=== PATIENT | male | born 1945 | race Caucasian/White ===

== ENCOUNTER 2025-03-09 18:56 | Emergency (ER) | payer OTHER, BC ==
--- NOTE | 2025-03-09 20:15 | RAD REPORT ---
EXAMINATION: Elbow Right 3 View CLINICAL INDICATION: Male, 79 years old. fall;Pain RIGHT COMPARISON: No prior exam. FINDINGS: No acute fracture. No malalignment/dislocation. No significant focal degenerative change. Other: Swelling along the dorsal aspect of the elbow with some subcutaneous gas. IMPRESSION: No acute fracture. Soft tissue swelling along the dorsal aspect of the elbow overlying the olecranon with some soft tissue gas. The soft tissue gas could be from a laceration or infection.
[2025-03-09] MEDS ORDERED: VANCOMYCIN 1 GM/VIAL ONE (22:19)
[2025-03-09] MEDS ORDERED: NA CHLORIDE 0.9% 500 ML ONE (22:19)
[2025-03-09] MEDS ORDERED: NA CHLORIDE 0.9% 250 ML ONE (22:19)
[2025-03-09] MEDS ORDERED: NA CHLORIDE 0.9% 100 ML ONE (22:20)
[2025-03-09] MEDS ORDERED: CEFEPIME 1 GM/VIAL ONE (22:20)
[2025-03-09 22:27] LABS: Absolute Basophils 0.1 K/uL (0-0.5); Absolute Eosinophils 0.1 K/uL (0-0.5); Absolute Lymphocytes (CBC) 0.8 K/uL (0.7-4.9); Absolute Monocytes 0.6 K/uL (0.1-1.3); Absolute Neutrophil 9.8 K/uL (1.8-8.0); Basophils % 0.6 % (0-1.3); Eosinophils % 0.7 % (0-4.4); Hematocrit 35.7 % (39.6-49.0); Hemoglobin 12.3 g/dL (13.6-17.9); Lymphocytes % 7.4 % (15.3-44.8); MCH 35.4 pg (27.0-35.0); MCHC 34.5 g/dL (32.0-36.0); MCV 102.5 fL (80-100); MPV 6.5 fL (7.6-11.3); Monocytes % 4.9 % (3.3-12.3); Neutrophils % 86.4 % (41.7-73.7); Platelets 362 thou/uL (152-406); RBC Red Blood Cell Count 3.48 M/uL (4.33-5.43)
[2025-03-09 22:32] LABS: PT Prothrombin Time 11.8 SECONDS (10-13.0); PTT, Activated Partial Thromb 32.1 SECONDS (27.2-37.4); Protime INR 1.04
[2025-03-09 22:37] LABS: AST/SGOT 17 U/L (15-37); Albumin 3.3 g/dL (3.4-5.0); Albumin/Globulin Ratio 0.7 (1.1-1.8); Alkaline Phosphatase 100 U/L (45-117); Anion Gap 8.5 mEq/L (5.0-15.0); BUN Blood Urea Nitrogen 22 mg/dL (7-18); Bicarbonate 29 mEq/L (21-32); Bilirubin Total 0.3 mg/dL (0.2-1.0); Globulin 4.6 g/dL (2.3-3.5); Glomerular Filtration Rate 64 ml/min (=/>90); Glucose Level 95 mg/dL (74-106); Potassium 4.5 mEq/L (3.5-5.1); Protein, Total 7.9 g/dL (6.4-8.2); Sodium Level 131 mEq/L (136-145)
[2025-03-09 23:07] LABS: ALT/SGPT < 14 U/L (16-61)
--- NOTE | 2025-03-09 23:41 | EDPHYS ---
Physician Documentation [facility] Name: Per Doherty Age: 79 yrs Sex: Male : 1945 Arrival Date: 03/09/2025 Time: 18:56 Bed 19 Private MD: ED Physician Chavo Stephen HPI: 03/09 20:00 This 79 yrs old Male presents to ER via Ambulatory with complaints of Fall Injury - cp ELBOW, ELBOW PROBLEM. 20:00 Details of fall: The patient fell from an upright position, while walking, and struck a cp tile surface. Onset: The symptoms/episode began/occurred 3 day(s) ago. Associated injuries: The patient sustained right elbow, painful injury, swelling. Historical: - PMHx: 19:47 Hypertensive disorder; br2 - Immunization history:: Adult Immunizations up to date, Last tetanus immunization: unknown. - Infectious Disease History:: Denies. - Social history:: Smoking status: Patient/guardian denies using tobacco, Patient uses alcohol, occasionally. Patient/guardian denies using street drugs. ROS: 20:05 MS/extremity: Positive for erythema, pain, swelling, tenderness, of the right elbow, cp Negative for decreased range of motion, deformity, 20:05 Constitutional: Negative for body aches, chills, fever, cp 20:05 Eyes: Negative for injury, pain, redness, and discharge, cp 20:05 Neck: Negative for pain with movement, pain at rest, cp 20:05 Cardiovascular: Negative for chest pain, 20:05 Respiratory: Negative for cough, shortness of breath, wheezing, 20:05 Abdomen/GI: Negative for abdominal pain, vomiting, diarrhea, constipation, 20:05 Back: Negative for pain at rest, pain with movement, 20:05 Neuro: Negative for altered mental status, dizziness, headache, loss of consciousness, syncope, 20:05 All other systems are negative, Exam: 20:10 Constitutional: The patient appears in no acute distress, alert, awake, cp non-diaphoretic, non-toxic, well developed, well nourished, 20:10 Head/Face: Normocephalic, atraumatic. cp 20:10 Eyes: Periorbital structures: appear normal, Conjunctiva: normal, no exudate, no cp injection, Sclera: no appreciated abnormality, Lids and lashes: appear normal, bilaterally, 20:10 ENT: External ear(s): are unremarkable, Nose: is normal, Mouth: Lips: moist, Oral cp mucosa: moist, Posterior pharynx: Airway: no evidence of obstruction, patent, 20:10 Chest/axilla: Inspection: normal, 20:10 Cardiovascular: Rate: normal, Rhythm: regular, 20:10 Respiratory: the patient does not display signs of respiratory distress, Respirations: normal, no use of accessory muscles, no retractions, labored breathing, is not present, Breath sounds: are clear throughout, no decreased breath sounds, no stridor, no wheezing, 20:10 Abdomen/GI: Inspection: abdomen appears normal, Palpation: abdomen is soft and non-tender, in all quadrants, 20:10 Back: pain, is absent, ROM is normal, 20:10 Neuro: Orientation: to person, place \T\ time. Mentation: is normal, Motor: moves all fours, strength is normal, 20:13 Musculoskeletal/extremity: Extremities: noted in the right elbow: small open wound cp posterior elbow with colored drainage expressed, moderate swelling with erythema advancing medial and proximal to joint and distal to joint, Vital Signs: 19:42 BP 145 / 87; Pulse 99; Resp 18; Temp 97.2; Pulse Ox 99% ; Weight 69.85 kg; Height 5 ft. br2 11 in. ; Pain 3/10; 03/10 00:43 BP 137 / 73; Pulse 84; Resp 18; Temp 97.2(TE); Pulse Ox 98% on R/A; Pain 2/10; br2 01:26 BP 140 / 68; Pulse 62; Resp 18; Pulse Ox 100% ; br2 04:11 BP 115 / 55; Pulse 74; Resp 18; Pulse Ox 97% on R/A; km10 05:30 BP 111 / 55; Pulse 66; Resp 16; Pulse Ox 97% on R/A; km10 03/09 19:42 Body Mass Index 21.48 (69.85 kg, 180.34 cm) br2 03/09 19:42 Pain Scale: Adult br2 03/10 00:43 Pain Scale: Adult br2 MDM: 03/09 20:00 Differential diagnosis: contusion, fracture, cellulitis, septic joint, bursitis, cp necrotizing fasciitis. 21:00 Independent interpretation of the following test(s) in the Emergency Department EKG: cp See my EKG interpretation above X-Ray: My interpretation is images of right elbow negative for fracture. 23:40 Medical Screening Exam initiated 23:45 Data reviewed: vital signs, nurses notes, lab test result(s), radiologic studies, plain cp films. 23:45 Care significantly affected by the following chronic conditions: Hypertension. 23:45 Counseling: I had a detailed discussion with the patient and/or guardian regarding the cp historical points, exam findings, and any diagnostic results supporting the discharge/admit diagnosis, lab results, radiology results, need for inpatient treatment with IV antibiotics. 23:50 Management of patient was discussed with the following: Hospitalist: DR Malagon who cp request transfer for orthopedics consult. 03/10 00:11 ED course: consult with orthopedics at [facility], DR Rodriguez who requests cp admission to hospitalist services. 03/09 19:49 Order name: Wound Culture 03/09 19:54 Order name: CBC with Diff; Complete Time: 00:50 03/09 22:48 Interpretation: Normal except: WBC 11.30; RBC 3.48; HGB 12.3; HCT 35.7; MCV 102.5; MCH cp 35.4; MPV 6.5; KENDELL% 86.4; LYM% 7.4; NEUT A 9.8. 03/09 19:54 Order name: CMP; Complete Time: 00:10 03/09 19:54 Order name: Lactate w/ 2H reflex if indic.; Complete Time: 22:48 03/09 19:54 Order name: PT-INR; Complete Time: 22:48 cp 03/09 19:54 Order name: Ptt, Activated; Complete Time: 22:48 03/09 20:59 Order name: Blood Culture Adult (2) 03/09 22:49 Order name: Manual Differential; Complete Time: 00:50 EDMS 03/09 19:49 Order name: XRAY Elbow RIGHT 3 view; Complete Time: 20:58 cp 03/09 20:58 Interpretation: Report reviewed. 03/09 19:54 Order name: IV; Complete Time: 21:57 cp Administered Medications: 03/09 23:03 Drug: Cefepime IVPB 1 grams IVPB at 200 ml/hr once over 30 mins; (mix in NS 100 mL) br2 Route: IVPB; Rate: 200 ml/hr; Infused Over: 30 mins; Site: left antecubital; 23:45 Follow up: Response: No adverse reaction; IV Status: Completed infusion; IV Intake: br2 100ml 23:04 Drug: NS 0.9% IV 500 ml 500 ml IV at 1 bolus once; to be given as a bolus over 60 br2 minutes Volume: 500 ml; Route: IV; Rate: 1 bolus; Site: left antecubital; 03/10 00:36 Follow up: Response: No adverse reaction; IV Status: Completed infusion; IV Intake: br2 500ml 00:00 Drug: vancoMYCIN IVPB 1 grams IVPB once over 2 hrs Route: IVPB; Infused Over: 2 hrs; br2 Site: left antecubital; 03:16 Follow up: Response: No adverse reaction; IV Status: Completed infusion; IV Intake: br2 250ml 00:55 Drug: morphine IVP or IV 4 mg IVP once over 4 mins Route: IVP; Infused Over: 4 mins; br2 Site: left antecubital; 01:30 Follow up: Response: Pain is decreased br2 00:55 Drug: Ondansetron IVP 4 mg IVP once; over 2 minutes Route: IVP; Site: left antecubital; br2 01:30 Follow up: Response: No adverse reaction br2 Disposition: 19:16 Co-signature as Attending Physician, Chavo Stephen MD I agree with the assessment sp4 and plan of care. I reviewed the patient's care provided by the Advanced Practice Provider and agree with the diagnosis and treatment plan. 19:17 Chart complete. sp4 Disposition Summary: 03/09/25 23:40 Transfer Ordered Notes: Transfer Location: Other [facility] cp Reason: Higher level of care cp Condition: Stable cp Problem: new cp Symptoms: have improved cp Accepting Physician: doctor(03/10/25 05:40) km10 Diagnosis - Olecranon bursitis, right elbow cp - Cellulitis of right upper limb cp Forms: - Medication Reconciliation Form cp - SBAR form cp Signatures: Dispatcher [employer] EDMS Lewis Cabral PA PA cp Potepalov, Sergey, MD MD sp4 Rayne Henry RN RN br2 Shalonda Dee RN RN km10 Corrections: (The following items were deleted from the chart) 03/09 19:50 19:50 Wound Culture+[email or web address] ordered. EDMS EDMS 03/10 05:40 03/09 23:40 doctor yolette km10
--- NOTE | 2025-03-09 23:41 | ER ---
Nurse's Notes [facility] Name: Per Doherty Age: 79 yrs Sex: Male : 1945 Arrival Date: 03/09/2025 Time: 18:56 Bed 19 Private MD: Diagnosis: Olecranon bursitis, right elbow;Cellulitis of right upper limb Presentation: 03/09 19:42 Chief complaint: Patient states: S/P FALL 4 DAYS AGO, C/O RIGHT ELBOW PAIN...POSSIBLE br2 ABSCESS TO RIGHT ELBOW. Coronavirus screen: Client denies travel out of the [place] in the last 14 days. Ebola Screen: Patient denies exposure to infectious person. Initial Sepsis Screen: Does the patient meet any 2 criteria? No. Patient's initial sepsis screen is negative. Does the patient have a suspected source of infection? No. Patient's initial sepsis screen is negative. Risk Assessment: Do you want to hurt yourself or someone else? Patient reports no desire to harm self or others. Onset of symptoms was March 05, 2025. 19:42 Method Of Arrival: Ambulatory br2 19:42 Acuity: ANTHONY 3 br2 Triage Assessment: 19:42 EENT: No signs and/or symptoms were reported regarding the EENT system. Neuro: Johnson br2 Agitation-Sedation Scale (RASS): 0 - Alert and Calm Level of Consciousness is awake, alert, Oriented to person, place, time, situation. Cardiovascular: Denies chest pain, shortness of breath, Capillary refill < 3 seconds. Respiratory: Denies shortness of breath. Derm: Skin is thin, Skin is moist, Skin is red, Skin temperature is hot Wound noted right elbow. 19:47 General: Appears uncomfortable, Behavior is calm, cooperative. Pain: Complains of pain br2 in right arm Pain currently is 3 out of 10 on a pain scale. Historical: - PMHx: 19:47 Hypertensive disorder; br2 - Immunization history:: Adult Immunizations up to date, Last tetanus immunization: unknown. - Infectious Disease History:: Denies. - Social history:: Smoking status: Patient/guardian denies using tobacco, Patient uses alcohol, occasionally. Patient/guardian denies using street drugs. Screenin:42 [facility] ED Fall Risk Assessment (Adult) History of falling in the last 3 months, br2 including since admission Yes- single mechanical fall (1 pt) Confusion or Disorientation No (0 pts) Intoxicated or Sedated No (0 pts) Impaired Gait No (0 pts) Mobility Assist Device Used No (0 pt) Altered Elimination No (0 pt) Score/Fall Risk Level 0 - 2 = Low Risk Oriented to surroundings. Abuse screen: Denies threats or abuse. Denies injuries from another. Nutritional screening: No deficits noted. Tuberculosis screening: No symptoms or risk factors identified. Assessment: 03/10 01:30 Reassessment: SEE TRIAGE ASSESSMENT. br2 03:14 Reassessment: Patient and/or family updated on plan of care and expected duration. Pain br2 level reassessed. Patient is alert, oriented x 3, equal unlabored respirations, skin warm/dry/pink. Patient states feeling better. Patient states symptoms have improved. 04:04 Reassessment: Patient appears in no apparent distress at this time. assuming care as [facility] primary RN at this time, report rec'd from Rayne SAAVEDRA. 04:41 Reassessment: nurse to nurse report given to Kojo SAAVEDRA. km10 05:30 Reassessment: Patient appears in no apparent distress at this time. Patient and/or 10 family updated on plan of care and expected duration. Pain level reassessed. Vital Signs: 03/09 19:42 BP 145 / 87; Pulse 99; Resp 18; Temp 97.2; Pulse Ox 99% ; Weight 69.85 kg; Height 5 ft. br2 11 in. ; Pain 3/10; 03/10 00:43 BP 137 / 73; Pulse 84; Resp 18; Temp 97.2(TE); Pulse Ox 98% on R/A; Pain 2/10; br2 01:26 BP 140 / 68; Pulse 62; Resp 18; Pulse Ox 100% ; br2 04:11 BP 115 / 55; Pulse 74; Resp 18; Pulse Ox 97% on R/A; km10 05:30 BP 111 / 55; Pulse 66; Resp 16; Pulse Ox 97% on R/A; km10 03/09 19:42 Body Mass Index 21.48 (69.85 kg, 180.34 cm) br2 03/09 19:42 Pain Scale: Adult br2 03/10 00:43 Pain Scale: Adult br2 ED Course: 03/09 19:01 Patient arrived in ED. cj3 19:05 Lewis Cabral PA is PHCP. cp 19:05 Gwendolyn Astudillo MD is Attending Physician. cp 19:42 Patient has correct armband on for positive identification. Placed in gown. Call light br2 in reach. Side rails up X 1. Provided Education on: plan of care. 19:47 Triage completed. br2 19:47 Arm band placed on right wrist. br2 20:11 XRAY Elbow RIGHT 3 view In Process Unspecified. EDMS 21:18 Zohreh Jean-Baptiste, RN is Primary Nurse. me1 21:57 Initial lab(s) drawn, by me, sent to lab. Inserted saline lock: 20 gauge in left rk3 antecubital area, using aseptic technique. Blood collected. Flushed with 10 mL NS. 21:57 Blood Culture Adult (2) Sent. rk3 21:57 Ptt, Activated Sent. rk3 21:58 PT-INR Sent. rk3 21:58 Lactate w/ 2H reflex if indic. Sent. rk3 21:58 CMP Sent. rk3 21:58 CBC with Diff Sent. rk3 22:30 Dressings: Kerlix X 1; right elbow non-adherent dressing. br2 22:48 Chavo Stephen MD is Attending Physician. cp 23:18 Blood Culture Adult (2) Sent. br2 23:18 CBC with Diff Sent. br2 23:18 Wound Culture Sent. br2 23:50 initiated transfer with [facility] 03/10 04:50 pt was accepted by Helio Quintero \T\ [id number]. Admin approval given by Coleen [facility] \T\[id number]. Number for nurse to nurse report [phone]. Pt will go to [facility] - Room 1218. [facility] to transfer pt. Administered Medications: 03/09 23:03 Drug: Cefepime IVPB 1 grams IVPB at 200 ml/hr once over 30 mins; (mix in NS 100 mL) br2 Route: IVPB; Rate: 200 ml/hr; Infused Over: 30 mins; Site: left antecubital; 23:45 Follow up: Response: No adverse reaction; IV Status: Completed infusion; IV Intake: br2 100ml 23:04 Drug: NS 0.9% IV 500 ml 500 ml IV at 1 bolus once; to be given as a bolus over 60 br2 minutes Volume: 500 ml; Route: IV; Rate: 1 bolus; Site: left antecubital; 03/10 00:36 Follow up: Response: No adverse reaction; IV Status: Completed infusion; IV Intake: br2 500ml 00:00 Drug: vancoMYCIN IVPB 1 grams IVPB once over 2 hrs Route: IVPB; Infused Over: 2 hrs; br2 Site: left antecubital; 03:16 Follow up: Response: No adverse reaction; IV Status: Completed infusion; IV Intake: br2 250ml 00:55 Drug: morphine IVP or IV 4 mg IVP once over 4 mins Route: IVP; Infused Over: 4 mins; br2 Site: left antecubital; 01:30 Follow up: Response: Pain is decreased br2 00:55 Drug: Ondansetron IVP 4 mg IVP once; over 2 minutes Route: IVP; Site: left antecubital; br2 01:30 Follow up: Response: No adverse reaction br2 Intake: 03/09 23:45 IV: 100ml; Total: 100ml. br2 03/10 00:36 IV: 500ml; Total: 600ml. br2 03:16 IV: 250ml; Total: 850ml. br2 Outcome: 03/09 23:40 ER care complete, transfer ordered by MD. de la vega 03/10 05:40 Patient left the ED. km10 Signatures: Dispatcher [employer] EDLewis Puga PA PA cp Zohreh Jean-Baptiste RN RN me1 Jovana Torres [facility] Rayne Henry RN RN br2 Linsey Jameson 3 Caitlin Ortiz 3 Shalonda Dee RN RN km10
[2025-03-10] MEDS ORDERED: MORPHINE 4 MG/ML SYR ONE (00:41)
[2025-03-10] MEDS ORDERED: ONDANSETRON 4 MG/2 ML VIAL ONE (00:46)
[2025-03-10 00:48] LABS: Band Neutrophils 14 % (0-1); Differential Total Cells Count 100; Eosinophils 2 % (0-3); Lymphocytes 6 % (15-42); Monocytes 2 % (0-10); Reactive Lymphocytes 2 %; Segmented Neutrophils 74 % (40-80)
[2025-03-10 00:49] LABS: Blood Morphology Comment NOT SEEN (NOT SEEN); Platelet Estimate ADEQ
[2025-03-10 05:51] VITALS: TEMP 97.2
[2025-03-10 06:08] VITALS: O2SAT 97
[2025-03-10 06:10] VITALS: BP 111/55
== END 2025-03-10 05:40 | disposition short-term general hospital (02) ==
LOC: ER 18:56
DX: L03.113 Cellulitis of right upper limb (principal); M70.21 Olecranon bursitis, right elbow; W18.30XA Fall on same level, unspecified, initial encounter
CPT/HCPCS: 87040 ×2; 87070; 85025; 36415; 87205; 85610; 83605; 85730; 80053; 73080; J3370; J2405; J7050; J7040; J0692